=== PATIENT | female | born 1965 | race Caucasian/White ===

== ENCOUNTER → 2016-11-04 | Outpatient (CLI) | payer OTHER ==
[~2016-11-04] MED LIST: CRESTOR PO; GLUCOPHAGE500 MG PO; HYDROCODONE PO; IBUPROFEN PO; LEXAPRO PO; LEXAPRO20 MG PO; LIPITOR40 MG; LORTAB 5/500 TA1 TA1 PO; MIRALAX17 G2 PO; PHENERGAN25 M1 PO; PROZAC; ROBAXIN 750750 M1 PO; SIMVASTATIN PO; SIMVASTATIN40 MG PO; TRICOR134 MG; TRILIPIX135 MG PO; TYLOX 5-500 CA1 EACH PO; VICODIN ES 7.51 EACH PO; VITAMIN B12; VITAMIN D; VOLTAREN50 MG PO; [UNRECOGNIZED DRUG - OTHER] PO
--- NOTE | ~2016-11-04 | US6 ---
[facility] A Service of [facility] RADIOLOGY TEXT RESULTS PATIENT: GEOVANNY LONG LOCATION: [facility] : 69 UNIT #: [id number] AGE: [address]: Milly Colin MD SEX: F ORDER DR: [id number] [place], [place] [address] [id number] MR#: [id number] Acc #: [id number] NAME: GEOVANNY LONG : 1965 SEX: F STUDY DATE/TIME: 11/04/2016 9:31 UNIT: [facility] ROOM: STUDY DESCRIPTION: US Abdominal Limited Attending Physician: Milly Colin M.D. Referring Physician: Milly Colin M.D. Ordering Physician: Milly Colin M.D. Primary Care Physician: Milly Colin M.D. MEDICAL IMAGING REPORT This report is preliminary unless electronic signature is present EXAM Right upper quadrant ultrasound. HISTORY Abnormal elevated liver function tests. Intermittent abdominal pain for years. TECHNIQUE Grayscale and color Doppler sonographic images were obtained through the right upper quadrant. FINDINGS Visualized portions of the pancreas appear unremarkable. There is mild hepatomegaly with the liver measuring up to about 16 cm in craniocaudal dimensions. The patient is noted to have diffuse hepatic steatosis. No definite focal hepatic lesions are seen. The main portal vein is patent with hepatopetal flow. Right kidney appears unremarkable. No solid or cystic renal masses are seen, and there is no hydronephrosis. Gallbladder is also normal in appearance with no stones or sludge seen, and no gallbladder wall thickening or pericholecystic fluid identified. IMPRESSION Mild hepatomegaly and diffuse hepatic steatosis. Dictated by... Bridget Link M.D. THIS IS AN ELECTRONICALLY VERIFIED REPORT Bridget Link M.D. at 11/08/2016 8:02 AM AFF/js [facility] A Service of [facility] RADIOLOGY TEXT RESULTS PATIENT: GEOVANNY LONG LOCATION: [facility] #: [id number] : [birth year] UNIT #: [id number] AGE: [address]: Milly Colin MD SEX: F ORDER DR: TD: 11/04/2016 17:42 JOB #: [id number] MEDICAL IMAGING REPORT Page 1 of 1 COPY
== END | disposition home or self-care (01) ==
LOC: CGUS 08:53
DX: R79.89 Other specified abnormal findings of blood chemistry (principal); K76.0 Fatty (change of) liver, not elsewhere classified; R16.0 Hepatomegaly, not elsewhere classified
CPT/HCPCS: 76705